=== PATIENT | female | born 1980 | race African-American/Black ===

== ENCOUNTER 2017-06-23 12:17 | Observation (INO) ==
[2017-06-23] MEDS ORDERED: ONDANSETRON 4 MG/2 ML VIAL IV STA (13:00)
[2017-06-23] MEDS ORDERED: SODIUM CHLORIDE 0.9% 1,000 ML IV STA (13:00)
[2017-06-23] MEDS ORDERED: ACETAMINOPHEN 325 MG TABLET PO PRN (13:11)
[2017-06-23] MEDS ORDERED: MAGNESIUM HYDROXIDE SUSP 30 ML UDCUP PO PRN (13:11)
[2017-06-23] MEDS ORDERED: ONDANSETRON 4 MG/2 ML VIAL IV PRN (13:11)
[2017-06-23] MEDS ORDERED: BISACODYL 10 MG SUPP RECTAL PRN (13:11)
[2017-06-23] MEDS ORDERED: IBUPROFEN 800 MG TABLET PO PRN (13:11)
[2017-06-23] MEDS ORDERED: PROMETHAZINE 25 MG/1 ML VIAL IM PRN (13:11)
[2017-06-23 13:18] LABS: Basophils % 0.3 % (0.0-0.8); Eosinophils % 0.2 % (0.00-10.9); Hematocrit 36.7 VOL% (35.7-47.0); Hemoglobin 12.7 GM/DL (12.0-16.0); Immature Granulocytes % 0.9 %; Lymphocytes # 1.9 10*3/uL (1.4-4.0); Lymphocytes % 16.2 % (21.3-54.2); Mean Corpuscular HGB Conc 34.6 GM/DL (32-36); Mean Corpuscular Hemoglobin 30 PG (27-34); Mean Corpuscular Volume 85.2 FL (87-102); Mean Platelet Volume 9.7 FL (9.6-12.0); Monocytes # 1.3 10*3/uL (0.11-0.8); Monocytes % 10.8 % (1.7-12.7); Neutrophils # 8.3 10*3/uL (1.4-7.4); Neutrophils % 71.6 % (38.7-73.9); Platelet Count 410 T/CUMM (130-400); Red Blood Count 4.31 MC/CUMM (3.8-5.5); Red Cell Distribution Width 11.4 % (9.3-17.3); White Blood Count 11.7 T/CUMM (4-12)
[2017-06-23] MEDS ORDERED: ONDANSETRON 4 MG/2 ML VIAL ONE (13:24)
[2017-06-23 13:42] LABS: Osmolality,Calculated 276.7 MOS/KG (273-304); Potassium 3.2 MMOL/L (3.5-5.1)
--- NOTE | 2017-06-23 13:58 | Ultrasound Report ---
Exam: US OB <= 14 weeks fetus Date: 06/23/2017 1:12 PM Comparison: 06/17/2017 Indication: Palpitations, Technique:[Multiple transabdominal real-time scans were obtained of the pelvis. Color-flow scans obtained. Ultrasound images were captured and stored.] Findings: The uterus is anteverted in position and measures 86 x 55 x 49 mm. There is a normal-appearing gestational sac in the uterus with a normal amount of amniotic fluid. Normal-appearing yolk sac identified. Single intrauterine fetus with a heart rate 165 BPM. CRL corresponds to 6 7 weeks 3 days. It is difficult to determine the location of the placenta due to gestational age. Right ovary measures 24 x 14 x 13 mm. Left ovary measures 25 x 16 x 11 mm. 16 x 12 x 10 mm more simple appearing left ovarian cyst. Previously noted 9 mm more complex cyst. Blood flow documented in the ovaries with no adnexal mass or free fluid. Impression: Early intrauterine at 7 weeks 3 days +/- 1 weeks 5 days with EDC 02/06/2018. EDC of prior exam 02/08/2018. No significant subchorionic hemorrhage identified on these transabdominal scans. PROCEDURE INTERPRETED AT [facility] DEPARTMENT OF RADIOLOGY Final Report Signed by: Dr. Mary Cherry
[2017-06-23] MEDS: SODIUM CHLORIDE 0.9% 1,000 ML IV SCH ×2 (14:27→23:01)
[2017-06-23] MEDS ORDERED: LORazepam 2 MG/1 ML VIAL IV ONE (15:06)
[2017-06-23] MEDS: PANTOPRAZOLE 40 MG VIAL IV SCH ×2 (15:34→23:00)
[2017-06-23] MEDS: POTASSIUM CHLORIDE INJ 20 MEQ in LACTATED RINGERS 1,000 ML IV SCH (17:12)
--- NOTE | 2017-06-23 18:03 | OB/GYN History & Physical ---
History of Present Illness Chief complaint: Hyperemesis History of present illness: Ms. Perkins is a 37 year old female 37-year-old 1 para 0 EDC is 02/08/2018 at approximately 7 weeks and 3 days who presents with hyperemesis and weakness. Stated the patient was not able to keep anything down over the last week and a half the 2 weeks. Was most recently admitted at [facility] less than a week ago Where she found out at this particular time she was . This patient has a type a personality where she extremely anxious. And appears to have somewhat of a panic attack. This patient received IV Ativan continue with IV fluids Phenergan will be given over the next 24 hours every 6 hours. She will also be administered Zofran as needed as well. Potassium level was found to be 3.2 which will be replaced with IV therapy as well. Home Medications Medication Instructions Recorded Confirmed Type Ondansetron Tab [Zofran Tab] 4 mg PO Q4-6H PRN 06/17/17 06/23/17 History Progesterone, Micronized 100 mg PO BEDTIME 06/17/17 06/23/17 History [Progesterone] Promethazine Supp [Phenergan Supp] 25 mg RECTAL Q4-6H 06/23/17 06/23/17 History Allergies Allergy/AdvReac Type Severity Reaction Status Date / Time No Known Allergies Allergy Verified 06/23/17 12:35 Medical,Surgical,& Family Hx - Medical History Psychological: History of: Anxiety Disorders Genitourinary: History of: Problems (UTI) Gastrointestinal: History of: GERD, GI Problems (GERD ET HAD ESOPHAGUS DILATED) Reproductive: History of: Ovarian Cysts - Family History Family History: Reports;: Family Diabetes (BOTH SETS GRANDPARENTS), Family Hypertension (BOTH SETS GRANDPARENTS) - Social History Smoking Status: Never smoker Frequency of Alcohol Use: None Type of Drug Use: None 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 - Constitutional Vitals: Vital Signs Temp Pulse Pulse Resp BP BP Pulse Ox 06/23/17 16:00 20 06/23/17 15:44 99.9 F H 108 H 20 114/72 06/23/17 14:40 100.4 F H 115 H 20 130/81 06/23/17 14:16 118 H 19 135/72 100 06/23/17 14:01 24 06/23/17 13:44 21 06/23/17 12:32 98.2 F 140 H 22 118/85 100 Pulse Ox 06/23/17 16:00 06/23/17 15:44 99 06/23/17 14:40 06/23/17 14:16 06/23/17 14:01 06/23/17 13:44 06/23/17 12:32 General appearance: mild distress - Head Head exam: Present: normal inspection - Eye Eye exam: Present: EOMI Pupils: Present: JAEL - ENT ENT exam: Present: other (Oral cavity dry) - Neck Neck exam: Present: normal inspection - Respiratory Respiratory exam: Present: clear to auscultation bilaterally - Breast Breasts: as per HPI Menstruation: as per HPI - Cardiovascular Cardiovascular exam: Present: regular rate and rhythm - GI/Abdominal GI/Abdominal exam: Present: normal bowel sounds - Extremities Exam Extremities exam: Present: normal inspection - Back Exam Back exam: Present: normal inspection - Neurological Exam Neurological exam: Present: alert, oriented X3 - Psychiatric Psychiatric exam: Present: agitated, anxious - Skin Skin exam: Present: normal color Assessment and Plan (1) Hyperemesis Status: Acute Assessment and plan: IV hydration, antiemetics, antianxiety medication and limited basis. Current Visit: Yes Results - Labs CBC & BMP: 06/23/17 13:10 06/23/17 13:10
[2017-06-23] MEDS ORDERED: LORazepam 2 MG/1 ML VIAL IV PRN ×2 (18:15→19:30)
[2017-06-23] MEDS: METOCLOPRAMIDE 10 MG/2 ML VIAL IV SCH (18:41)
[2017-06-23] MEDS: AMPICILLIN INJ 2,000 MG in SODIUM CHLORIDE 0.9% 100 ML IV SCH (19:12)
[2017-06-23 19:22] LABS: Apearance,Urine CLOUDY (Clear); Bilirubin,Urine Negative (Negative); Blood, Urine Small mg/dL (Negative); Glucose,Urine (UA) Negative (Negative); Ketones,Urine 80 mg/dL (Negative); Mucus,Urine Moderate /LPF (Occasional); Nitrite,Urine Negative (Negative); Protein,Urine 100 MG/DL; RBC,Urine 3 /HPF (0-4); Squamous Epithelial Cell,Urine Occasional /HPF (0-10); Urine Color Amber (Yellow); WBC,Urine 23 /HPF (0-6)
--- NOTE | 2017-06-23 20:13 | EKG Report ---
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
[2017-06-23] MEDS ORDERED: PANTOPRAZOLE 40 MG VIAL IV SCH (21:00)
[2017-06-23] MEDS: DOCUSATE SODIUM 100 MG CAPSULE PO SCH (23:00)
[2017-06-24] MEDS: POTASSIUM CHLORIDE INJ 20 MEQ in LACTATED RINGERS 1,000 ML IV SCH ×4 (01:12→18:33)
[2017-06-24] MEDS: AMPICILLIN INJ 2,000 MG in SODIUM CHLORIDE 0.9% 100 ML IV SCH ×4 (01:46→23:10)
[2017-06-24] MEDS: METOCLOPRAMIDE 10 MG/2 ML VIAL IV SCH ×3 (02:39→20:04)
[2017-06-24] MEDS: DOCUSATE SODIUM 100 MG CAPSULE PO SCH ×2 (09:06→21:11)
[2017-06-24] MEDS: PANTOPRAZOLE 40 MG VIAL IV SCH ×2 (09:07→21:24)
--- NOTE | 2017-06-24 12:56 | Progress Note ---
Assessment and Plan (1) Hyperemesis Status: Acute Assessment and plan: IV hydration, antiemetics, antianxiety medication and limited basis. Current Visit: Yes Family Medicine PN Sub Interval history: Hyperemesis, slowly improving, will slowly increase her diet to a soft diet. We will continue with IV fluids and also potassium replacement. Reglan, milk of magnesia have helped with this patient's ongoing problem of constipation. No active bleeding no pelvic pain will continue to observe at this time. Also no episodes of antianxiety outbursts. Exam (Progress Note) - Constitutional Vitals: Period Temp Pulse Resp BP Sys/Pelaez Pulse Ox Last 24 Hr 98.1 F-100.4 F 92-118 16-24 104-135/63-81 97-100 Results - Labs CBC & BMP: 06/23/17 13:10 06/23/17 13:10
[2017-06-25] MEDS: POTASSIUM CHLORIDE INJ 20 MEQ in LACTATED RINGERS 1,000 ML IV SCH ×3 (01:22→16:33)
[2017-06-25] MEDS: METOCLOPRAMIDE 10 MG/2 ML VIAL IV SCH ×3 (04:26→19:59)
[2017-06-25] MEDS: AMPICILLIN INJ 2,000 MG in SODIUM CHLORIDE 0.9% 100 ML IV SCH ×4 (05:41→23:40)
[2017-06-25 05:49] LABS: Albumin 2.5 G/DL (3.4-5.0); Bilirubin,Total 0.6 MG/DL (0.2-1.0); Calcium 8.1 MG/DL (8.5-10.1); Total Protein 4.9 G/DL (6.4-8.3)
[2017-06-25 05:50] LABS: Osmolality,Calculated 272.5 MOS/KG (273-304); Potassium 3.3 MMOL/L (3.5-5.1)
[2017-06-25] MEDS: PANTOPRAZOLE 40 MG VIAL IV SCH ×2 (08:51→21:21)
[2017-06-25] MEDS: DOCUSATE SODIUM 100 MG CAPSULE PO SCH ×2 (08:53→21:21)
[2017-06-25] MEDS: PYRIDOXINE 50 MG TABLET PO SCH (21:21)
[2017-06-26] MEDS: POTASSIUM CHLORIDE INJ 20 MEQ in LACTATED RINGERS 1,000 ML IV SCH ×3 (00:48→16:05)
[2017-06-26] MEDS: METOCLOPRAMIDE 10 MG/2 ML VIAL IV SCH ×2 (04:22→12:39)
[2017-06-26] MEDS: AMPICILLIN INJ 2,000 MG in SODIUM CHLORIDE 0.9% 100 ML IV SCH ×2 (05:26→11:30)
[2017-06-26 05:52] LABS: Alanine Aminotransferase 10 U/L (13-56); Albumin 2.6 G/DL (3.4-5.0); Alkaline Phosphatase 37 U/L (45-117); Aspartate Amino Transferase 10 U/L (0-37); Blood Urea Nitrogen < 1 MG/DL (7-18); Calcium 8.5 MG/DL (8.5-10.1); Glucose 102 MG/DL (74-106); Potassium 3.7 MMOL/L (3.5-5.1); Sodium 138 MMOL/L (136-145); Total Protein 5.2 G/DL (6.4-8.3)
[2017-06-26] MEDS: PANTOPRAZOLE 40 MG VIAL IV SCH (08:43)
[2017-06-26] MEDS: PYRIDOXINE 50 MG TABLET PO SCH ×2 (08:51→16:05)
[2017-06-26] MEDS: DOCUSATE SODIUM 100 MG CAPSULE PO SCH (08:51)
[2017-06-26 16:21] VITALS: BP 121/69
--- NOTE | 2017-07-07 16:00 | Emergency Department Note ---
Austyn Mas Manpreet, am scribing for, and in the presence of, Conrad Canseco MD 12:52. Harleen Mas Phillip K, MD, personally performed the services described in this documentation, ascribed by Stephan Zaman in my presence, and it is both accurate and complete . Arrival - Arrival Chief Complaint: Arrhythmia/Palpitations Stated Complaint: ANXIETY ED Nursing Triage Note: Brought in by EMS c/o anxiety and palpitations-onset this morning. EMS reports that patient was in SVT upon their arrival to patient. Patient is 7 weeks gestation. Mode of Arrival: Stretcher Limitations: No Limitations Source: Patient, Family - History of Present Illness HPI Narrative: Pt is a 37 y/o female, with PMHx of GERD, who presents to the ED with CC of anxiety and palpations earlier this AM and c/o N/V.The pt is 7 weeks into her first . The states he found the pt found passed out and approximates it lasting 5 minutes. Pt denies any bleeding or cramping but reports of intermittent pain. Pt's last period was May 01. Pt has been taking Zofran for the nausea with no relief. Pt went to [place] [facility] for the same complaint and was admited to the hospital a few weeks back. Pt's SYSTEMS SOFTWARE MANAGER is Dr. Neil Simons. No other pains/complaints reported to the ED. Onset (ago): hour(s) Consistency: constant Severity: moderate Severity scale (1-10): 4 Date of Last Menstrual Period: 7 weeks gestation Allergies/Adverse Reactions: Allergies Allergy/AdvReac Type Severity Reaction Status Date / Time No Known Allergies Allergy Verified 06/23/17 12:35 Home Medications: Home Medications Medication Instructions Recorded Confirmed Type Ondansetron Tab [Zofran Tab] 4 mg PO Q4-6H PRN 06/17/17 06/23/17 History Progesterone, Micronized 100 mg PO BEDTIME 06/17/17 06/23/17 History [Progesterone] Promethazine Supp [Phenergan Supp] 25 mg RECTAL Q4-6H 06/23/17 06/23/17 History Review of System - Review of System ROS unobtainable: due to encephalopathy - Review of System Constitutional: Absent: chills, fever Respiratory: Absent: cough Cardiovascular: Present: palpitations, syncope. Absent: chest pain Gastrointestinal: Present: abdominal pain, nausea, vomiting. Absent: diarrhea Psychiatric: Present: anxiety Medical,Surgical,& Family Hx - Medical History Psychological: History of: Anxiety Disorders Gastrointestinal: History of: GERD - Social History Smoking Status: Never smoker Frequency of Alcohol Use: None Type of Drug Use: None Exam Vital Signs: Vital Signs Temperature 98.6 F 06/26/17 16:00 Pulse Rate 95 H 06/26/17 16:00 Respiratory Rate 18 06/26/17 16:00 Blood Pressure 121/69 06/26/17 16:00 O2 Sat by Pulse Oximetry 99 06/26/17 16:00 - General General appearance: alert - Head Head exam: Present: atraumatic, normocephalic, normal inspection - Eye Eye exam: Present: normal appearance, PERRL, EOMI - ENT ENT exam: Present: normal exam, normal oropharynx, mucous membranes moist, TM's normal bilaterally - Neck Neck exam: Present: normal inspection, full ROM, trachea midline. Absent: tenderness, thyromegaly - Chest Chest inspection: Present: normal inspection, symmetric chest wall rise. Absent : tenderness - Respiratory Respiratory exam: Present: normal lung sounds bilaterally. Absent: accessory muscle use, rales, respiratory distress - Cardiovascular Cardiovascular exam: Present: normal rhythm, tachycardia, normal heart sounds. Absent: murmur, rubs, gallop, clicks - Abdominal Exam Abdominal exam: Present: soft, normal bowel sounds. Absent: distention, tenderness, guarding, rebound - Extremities Exam Extremities exam: Present: normal inspection, full ROM. Absent: tenderness - Back Exam Back exam: Present: normal inspection, full ROM. Absent: tenderness - Neurological Exam Neurological exam: Present: alert, oriented X3, CN II-XII intact, reflexes normal - Psychiatric Psychiatric exam: Present: normal affect, normal mood - Skin Skin exam: Present: warm, dry, intact, normal color. Absent: pallor Course Course Narrative: Admit to Dr. Simons. Results - Labs CBC & BMP: 06/23/17 13:10 06/26/17 04:47 Lab Results: I have reviewed the patients labs Labs: Laboratory Tests 06/23/17 06/23/17 13:10 13:17 WBC 11.7 RBC 4.31 Hgb 12.7 Hct 36.7 MCV 85.2 L MCH 30 MCHC 34.6 Plt Count 410 H Lymph % (Auto) 16.2 L Neut # (Auto) 8.3 H [place] # (Auto) 1.3 H POC Glucose 148 H Laboratory Tests 06/23/17 13:10 Sodium 138 Potassium 3.2 L Chloride 105 Carbon Dioxide 23 Anion Gap 13.2 BUN 16 Creatinine 0.90 GFR Calculation 82 BUN/Creatinine Ratio 17.00 Glucose 125 H Calculated Osmolality 276.7 Calcium 9.0 Disposition Clinical Impression: Anxiety, SVT (supraventricular tachycardia), Syncope, Palpitations Case discussed with: patient Disposition: Still a Patient Condition: Stable
--- NOTE | 2017-07-11 07:17 | Discharge Summary ---
DATE OF ADMISSION: 06/23/2017 DATE OF DISCHARGE: 06/25/2017 The patient is a 37-year-old 1, 7 weeks 3 days, who presents with hyperemesis and weakness. This patient was seen over at [facility] within the last week with similar symptoms. She is admit [facility] at this time with somewhat of a panic attack and also the hyperemesis. On admission, she was giv en IV fluids of Phenergan and also Ativan p.r.n. She remained in the hospital for approximately 48 h ours whereupon the nausea and vomiting had subsided. She tolerated regular food. She only had one o utburst of anxiety attack which fully resolved after one dose of Ativan during her hospitalization. Ultrasound of pelvis demonstrated viable intrauterine with good cardiac activity. She rafale rated this well. She will follow up in my office at the scheduled appointment.
== END 2017-06-26 18:25 | disposition home or self-care (01) ==
LOC: EDBD → EDUNIT# → N.EDINP 12:17 → N.ED 12:17 → N.OB 14:36
PROVIDERS: ADMIT Obstetrics & Gynecology; ATTEND Obstetrics & Gynecology

== ENCOUNTER 2018-01-30 06:14 | Inpatient (IN) ==
[2018-01-30] MEDS ORDERED: ONDANSETRON 4 MG/2 ML VIAL IV PRN ×2 (07:41→19:31)
[2018-01-30] MEDS ORDERED: OXYTOCIN/LR 20 UNIT/1,000 ML BAG IV ONE ×2 (07:43→19:31)
[2018-01-30] MEDS ORDERED: OXYTOCIN/LR 20 UNIT/1,000 ML BAG IV SCH (07:45)
[2018-01-30] MEDS ORDERED: TERBUTALINE 1 MG/1 ML VIAL SUBCUT PRN (07:47)
[2018-01-30] MEDS ORDERED: MEPERIDINE 50 MG/1 ML VIAL IV PRN (07:47)
[2018-01-30] MEDS: LACTATED RINGERS 1,000 ML IV SCH ×2 (07:50→17:35)
[2018-01-30] MEDS ORDERED: diphenhydrAMINE 50 MG/1 ML VIAL IV PRN (07:53)
[2018-01-30] MEDS ORDERED: PROMETHAZINE 25 MG/1 ML VIAL IM ONE (07:53)
[2018-01-30] MEDS ORDERED: CITRIC ACID/SODIUM CITRATE 30 ML UDCUP PO ONE (07:53)
[2018-01-30] MEDS ORDERED: LACTATED RINGERS 1,000 ML IV ONE (07:53)
[2018-01-30] MEDS ORDERED: ePHEDrine 50 MG/ML AMP IV PRN (07:53)
[2018-01-30] MEDS ORDERED: FAMOTIDINE 20 MG/2 ML VIAL IV ONE (07:53)
[2018-01-30] MEDS ORDERED: hydrOXYzine HCL 25 MG/1 ML VIAL IM PRN (07:53)
[2018-01-30] MEDS ORDERED: fentaNYL 2 MCG/ROPIV 0.2% EPID 150 ML EPIDURAL SCH (08:00)
[2018-01-30 08:14] LABS: Basophils % 0.6 % (0.0-0.8); Eosinophils # 0.1 10*3/uL (0.0-0.87); Eosinophils % 1.7 % (0.00-10.9); Hematocrit 33.5 VOL% (35.7-47.0); Hemoglobin 10.2 GM/DL (12.0-16.0); Immature Granulocytes % 0.8 %; Immature Granulocytes Absolute 0.06 #; Lymphocytes # 2.1 10*3/uL (1.4-4.0); Lymphocytes % 28.9 % (21.3-54.2); Mean Corpuscular HGB Conc 30.4 GM/DL (32-36); Mean Corpuscular Hemoglobin 27 PG (27-34); Mean Corpuscular Volume 88.4 FL (87-102); Mean Platelet Volume 9.2 FL (9.6-12.0); Monocytes # 0.9 10*3/uL (0.11-0.8); Platelet Count 469 T/CUMM (130-400); Red Blood Count 3.79 MC/CUMM (3.8-5.5); Red Cell Distribution Width 14.5 % (9.3-17.3); White Blood Count 7.1 T/CUMM (4-12)
[2018-01-30] MEDS ORDERED: DINOPROSTONE VAG GEL 10 MG SYRINGE VAG ONE ×2 (08:20→08:22)
[2018-01-30 08:37] LABS: Alanine Aminotransferase 11 U/L (13-56); Albumin 2.7 G/DL (3.4-5.0); Alkaline Phosphatase 198 U/L (45-117); Aspartate Amino Transferase 11 U/L (0-37); Bilirubin,Total < 0.39 MG/DL (0.2-1.0); Blood Urea Nitrogen 5 MG/DL (7-18); Calcium 8.2 MG/DL (8.5-10.1); Glucose 73 MG/DL (74-106); Osmolality,Calculated 270.7 MOS/KG (273-304); Sodium 138 MMOL/L (136-145); Total Protein 6.4 G/DL (6.4-8.3)
[2018-01-30 15:46] LABS: Apearance,Urine CLEAR (Clear); Bacteria,Urine Occasional /HPF (Few); Bilirubin,Urine Negative (Negative); Blood, Urine Negative (Negative); Glucose,Urine (UA) Negative (Negative); Ketones,Urine 5 mg/dL (Negative); Mucus,Urine Occasional /LPF (Occasional); Nitrite,Urine Negative (Negative); Protein,Urine Negative; RBC,Urine 1 /HPF (0-4); Squamous Epithelial Cell,Urine Occasional /HPF (0-10); Urine Color Yellow (Yellow); Urine Specific Gravity 1.009 (1.001-1.035); Urine Urobilinogen < 2.0 EU/DL (0.2-1.0); WBC,Urine 4 /HPF (0-6)
[2018-01-30] MEDS ORDERED: OXYTOCIN 10 UNIT/ML VIAL IM ONE (18:14)
[2018-01-30] MEDS ORDERED: OXYTOCIN/LR 30 UNIT/1,000 ML BAG IV ONE (18:14)
[2018-01-30] MEDS ORDERED: ceFAZolin 1,000 MG in SYRINGE 1 EACH IV ONE (18:16)
[2018-01-30] MEDS ORDERED: RHO(D) IMMUNE GLOBULIN 300 MCG SYRINGE IM ONE (19:31)
[2018-01-30] MEDS ORDERED: SIMETHICONE CHEW 80 MG TABLET PO PRN (19:31)
[2018-01-30] MEDS ORDERED: ACETAMINOPHEN 325 MG TABLET PO PRN (19:31)
[2018-01-30] MEDS ORDERED: MIDAZOLAM 2 MG/2 ML VIAL ONE (19:34)
[2018-01-30] MEDS ORDERED: LIDOCAINE MPF 2% /EPI 20 ML VIAL ONE (19:34)
[2018-01-30] MEDS ORDERED: PHENYLEPHRINE 1 MG/10 ML SYRINGE IV ONE (19:34)
[2018-01-30] MEDS ORDERED: SODIUM BICARBONATE 2.4 MEQ/5 ML VIAL ONE (19:35)
[2018-01-30] MEDS ORDERED: KETAMINE 500 MG/10 ML VIAL ONE (19:42)
[2018-01-30] MEDS ORDERED: MORPHINE 10 MG/10 ML VIAL ONE (19:42)
[2018-01-30 19:57] LABS: Cord Arterial Blood HCO3 19.8 MMOL/L
[2018-01-30] MEDS ORDERED: LACTATED RINGERS 1,000 ML IV SCH (20:00)
[2018-01-30 20:01] LABS: Cord Venous Blood HCO3 20.7 MMOL/L; Cord Venous Blood PCO2 46.9 MMHG; Cord Venous Blood PO2 24.2
[2018-01-30] MEDS: IBUPROFEN 800 MG TABLET PO PRN (20:54)
[2018-01-30] MEDS ORDERED: PROMETHAZINE 25 MG/1 ML VIAL ONE (21:20)
[2018-01-31] MEDS: ceFAZolin 1,000 MG in SYRINGE 1 EACH IV SCH ×2 (02:26→11:33)
[2018-01-31 06:35] LABS: Basophils % 0.2 % (0.0-0.8); Eosinophils % 0.2 % (0.00-10.9); Hematocrit 28.3 VOL% (35.7-47.0); Hemoglobin 8.8 GM/DL (12.0-16.0); Immature Granulocytes % 0.6 %; Immature Granulocytes Absolute 0.07 #; Lymphocytes # 1.9 10*3/uL (1.4-4.0); Lymphocytes % 14.7 % (21.3-54.2); Mean Corpuscular HGB Conc 31.1 GM/DL (32-36); Mean Corpuscular Hemoglobin 27 PG (27-34); Mean Corpuscular Volume 86.5 FL (87-102); Monocytes # 0.8 10*3/uL (0.11-0.8); Monocytes % 6.2 % (1.7-12.7); Neutrophils # 9.9 10*3/uL (1.4-7.4); Neutrophils % 78.1 % (38.7-73.9); Platelet Count 394 T/CUMM (130-400); Red Blood Count 3.27 MC/CUMM (3.8-5.5); Red Cell Distribution Width 14.7 % (9.3-17.3); White Blood Count 12.6 T/CUMM (4-12)
[2018-01-31] MEDS: MULTIVITAMIN (PRENATAL) TABLET PO SCH (08:43)
[2018-01-31] MEDS: DOCUSATE SODIUM 100 MG CAPSULE PO SCH ×2 (08:44→21:11)
[2018-01-31] MEDS: FERROUS SULFATE 325 MG TABLET PO SCH ×3 (08:45→21:11)
[2018-01-31 13:03] LABS: Basophils % 0.2 % (0.0-0.8); Eosinophils % 0.2 % (0.00-10.9); Hematocrit 30.8 VOL% (35.7-47.0); Hemoglobin 9.5 GM/DL (12.0-16.0); Immature Granulocytes % 0.7 %; Immature Granulocytes Absolute 0.09 #; Lymphocytes # 1.9 10*3/uL (1.4-4.0); Lymphocytes % 13.6 % (21.3-54.2); Mean Corpuscular HGB Conc 30.8 GM/DL (32-36); Mean Corpuscular Hemoglobin 27 PG (27-34); Mean Platelet Volume 9.2 FL (9.6-12.0); Monocytes # 1.2 10*3/uL (0.11-0.8); Monocytes % 8.7 % (1.7-12.7); Neutrophils # 10.6 10*3/uL (1.4-7.4); Neutrophils % 76.6 % (38.7-73.9); Platelet Count 446 T/CUMM (130-400); Red Cell Distribution Width 14.9 % (9.3-17.3); White Blood Count 13.8 T/CUMM (4-12)
[2018-02-01] MEDS: DOCUSATE SODIUM 100 MG CAPSULE PO SCH ×2 (10:04→21:37)
[2018-02-01] MEDS: MULTIVITAMIN (PRENATAL) TABLET PO SCH (10:04)
[2018-02-01] MEDS: MAGNESIUM HYDROXIDE SUSP 30 ML UDCUP PO PRN (10:04)
[2018-02-01] MEDS: FERROUS SULFATE 325 MG TABLET PO SCH ×2 (10:04→21:37)
[2018-02-01] MEDS ORDERED: FUROSEMIDE 40 MG/4 ML VIAL IV SCH (10:34)
[2018-02-01] MEDS: IBUPROFEN 800 MG TABLET PO PRN (18:34)
[2018-02-01] MEDS: FUROSEMIDE 40 MG TABLET PO SCH (18:34)
[2018-02-02] MEDS: FUROSEMIDE 40 MG TABLET PO SCH (05:51)
[2018-02-02 07:32] VITALS: BP 110/66
[2018-02-02] MEDS: DOCUSATE SODIUM 100 MG CAPSULE PO SCH (09:05)
[2018-02-02] MEDS: FERROUS SULFATE 325 MG TABLET PO SCH (09:05)
[2018-02-02] MEDS: MULTIVITAMIN (PRENATAL) TABLET PO SCH (09:05)
[2018-02-02] MEDS: MAGNESIUM HYDROXIDE SUSP 30 ML UDCUP PO PRN (09:05)
[2018-02-02] MEDS ORDERED: MEASLES/MUMPS/RUBELLA VACCINE 0.5 ML VIAL SUBCUT ONE (10:36)
== END 2018-02-02 13:10 | disposition home or self-care (01) | DRG 540 ==
LOC: N.LDOUT 06:14 → N.LD 06:17 → N.OB 23:21
PROVIDERS: ADMIT Obstetrics & Gynecology; ATTEND Obstetrics & Gynecology
PROC: LDCSECT (ICD-10-PCS; 2018-01-30 18:35)